=== PATIENT | female | born 1930 | race Caucasian/White ===

== ENCOUNTER 2018-07-19 06:25 | Emergency (ER) | payer MEDICARE, OTHER ==
[~2018-07-19] VITALS: Ht 167.6 cm; Wt 79.5 kg
[~2018-07-19 06:25] MED LIST: ASPI-611 PO; DONE10TA44 PO; EYEL1MED EACHEYE; LACT1CAP65 PO; MELA3TAB PO; MULT-1085 PO; QUET25TA34 PO; QUETIAPINE 25 MG; TRAZ-219 PO; TRAZODONE 100 MG
[2018-07-19 06:28] VITALS: BP 152/82
--- NOTE | 2018-07-19 08:36 | NUR ---
CALLED [facility]. ETA 0930.
--- NOTE | 2018-07-19 08:40 | NUR ---
MISTY ROMERO CALLED, NURSE TO NURSE DC REPORT GIVEN TO PT'S FACILITY RN.
== END 2018-07-19 09:45 | disposition home or self-care (01) ==
LOC: ER 06:26
DX: S01.21XA Laceration without foreign body of nose, initial encounter (principal); S01.112A Laceration without foreign body of left eyelid and periocular area, initial encounter; G89.29 Other chronic pain; M19.90 Unspecified osteoarthritis, unspecified site; Z79.82 Long term (current) use of aspirin; Z79.899 Other long term (current) drug therapy; Z60.2 Problems related to living alone; W06.XXXA Fall from bed, initial encounter; Y93.89 Activity, other specified; Y92.89 Other specified places as the place of occurrence of the external cause; Y99.8 Other external cause status
CPT/HCPCS: 70450; 99284

== ENCOUNTER 2019-09-16 21:39 | Emergency (ER) | payer MEDICARE, OTHER ==
[~2019-09-16] VITALS: Ht 172.7 cm; Wt 76.0 kg
[~2019-09-16 21:39] MED LIST changes: -MELA3TAB PO; +MELA3TAB39 PO; -TRAZ-219 PO; +TRAZ-256 PO
[2019-09-16 22:24] LABS: BASOPHILS % (AUTO) 0.5 % (0-1); EOSINOPHILS # (AUTO) 0.1 X10'3 (0-0.9); EOSINOPHILS % (AUTO) 1.3 % (0-6); HEMATOCRIT 33.9 % (35.0-45.0); HEMOGLOBIN 11.4 g/dl (12.0-16.0); LYMPHOCYTES # (AUTO) 1.6 X10'3 (1.1-4.8); LYMPHOCYTES % (AUTO) 17.3 % (21-51); MEAN CORPUSCULAR HEMOGLOBIN 33.8 PG (27.0-31.0); MEAN CORPUSCULAR HGB CONC 33.6 g/dL (33.0-36.5); MEAN CORPUSCULAR VOLUME 100.7 FL (78-98); MEAN PLATELET VOLUME 7.9 FL (7.4-10.4); MONOCYTES # (AUTO) 1.1 X10'3 (0-0.9); MONOCYTES % (AUTO) 12.7 % (2-12); NEUTROPHILS # (AUTO) 6.2 X10'3 (1.8-7.7); NEUTROPHILS % (AUTO) 68.2 % (42-75); PLATELET COUNT 215 X10'3 (140-440); RED BLOOD COUNT 3.36 X10'6 (4.20-5.60); RED CELL DISTRIBUTION WIDTH 14.5 % (11.5-14.5)
[2019-09-16 22:25] LABS: CLARITY,URINE CLOUDY (Clear); COLOR,URINE YELLOW (Yellow); GLUCOSE, URINE NEGATIVE (Neg); KETONES,URINE 15 mg/dl (Neg); LEUKOCYTE ESTERASE ,URINE LARGE (Neg); NITRITES, URINE POSITIVE (Neg); OCCULT BLOOD,URINE SMALL (Neg); PH,URINE 5.5 (4.8-8.0); PROTEIN,URINE TRACE mg/dl (Neg)
[2019-09-16 22:28] LABS: UA COLLECTION TYPE STRAIGHT CATH
[2019-09-16 22:33] LABS: WBC,URINE 50-100 /HPF (0-4)
[2019-09-16 22:34] LABS: PARTIAL THROMBOPLASTIN TIME 32 SECONDS (22-32)
[2019-09-16 22:34] LABS: BACTERIA,URINE 3+ /HPF (Neg); MUCUS STRANDS NONE SEEN /LPF (Neg); SQUAMOUS EPITHELIAL CELL,UR FEW /LPF (FEW); TRANSITIONAL EPI CELLS,URINE FEW /HPF
[2019-09-16 22:36] LABS: ALANINE AMINOTRANSFERASE 21 U/L (12-78); ALBUMIN 2.1 G/DL (3.4-5.0); ALBUMIN/GLOBULIN RATIO 0.5 (1.1-1.5); ALKALINE PHOSPHATASE 127 IU/L (46-116); ANION GAP 5 (8-16); ASPARTATE AMINO TRANSFERASE 24 U/L (10-37); BILIRUBIN,TOTAL 0.3 MG/DL (0.1-1.0); BLOOD UREA NITROGEN 29 MG/DL (7-18); BUN/CREATININE RATIO 40.3 (6.6-38.0); CALCIUM 8.7 MG/DL (8.5-10.1); CHLORIDE 114 MMOL/L (99-107); CREATININE 0.72 MG/DL (0.40-0.90); GLUCOSE 99 MG/DL (70-104); POTASSIUM 3.4 MMOL/L (3.5-5.1); SODIUM 150 MMOL/L (135-145); TOTAL CARBON DIOXIDE 31.2 MMOL/L (24-32); TOTAL PROTEIN 6.6 G/DL (6.4-8.2); eGFR 76 ML/MIN
[2019-09-16] MEDS ORDERED: levoFLOXACIN-Levaquin 750MG/D5 150 ML IV STA (22:40)
[2019-09-16] MEDS ORDERED: CefTRIAXone/D5W-Rocephin 1gm 50 ML IV ONE (22:40)
[2019-09-16] MEDS ORDERED: normal saline 1000ML IV soln IVB ONE (22:40)
[2019-09-16] MEDS ORDERED: LEVO750T21 PO (23:04)
--- NOTE | 2019-09-17 00:11 | NUR ---
[facility] was contacted regarding transport back to assisted living with family private pay. [facility] reports that they do not have a charter coach driver until 929. Patient's family is amiable to this outcome. [facility] notified.
[2019-09-17 05:05] VITALS: BP 133/74
--- NOTE | 2019-09-17 07:48 | NUR ---
pt. will be going to [facility] via [facility] at 0989
--- NOTE | 2019-09-17 08:57 | NUR ---
pt. is sleeping comfortably, rr is even and unlabored. will continue to monitor until [facility] arrives for transportation back to assisted living.
== END 2019-09-17 10:22 | disposition home or self-care (01) ==
LOC: ER 21:39
DX: J18.9 Pneumonia, unspecified organism (principal); R41.82 Altered mental status, unspecified; N39.0 Urinary tract infection, site not specified; I49.9 Cardiac arrhythmia, unspecified; M19.90 Unspecified osteoarthritis, unspecified site; G89.29 Other chronic pain; Z90.89 Acquired absence of other organs; Z60.2 Problems related to living alone; Z79.82 Long term (current) use of aspirin; Z79.899 Other long term (current) drug therapy
CPT/HCPCS: 36415; 71045; 80053; 81001; 83605; 84145; 85025; 85610; 85730; 87040; 87077; 87088; 87186; 93005; 96365; 96366; 99285; J0696; J7030